=== PATIENT | female | born 1995 | race Caucasian/White ===

== ENCOUNTER 2023-01-15 15:03 | Emergency (ER) | payer OTHER ==
[~2023-01-15] VITALS: Ht 165.1 cm; Wt 81.1 kg
[2023-01-15] MEDS ORDERED: ADENOSINE 6MG 2ML INJECTION IV STA ×3 (15:12)
[2023-01-15] MEDS ORDERED: ADENOSINE 6MG 2ML INJECTION As Ordered ONE (15:13)
[2023-01-15] MEDS ORDERED: PROZ10CA7 PO (15:55)
[2023-01-15] MEDS ORDERED: HYDR-3363 PO (15:55)
[2023-01-15 16:00] LABS: HEMATOCRIT 44.4 % (36.0-47.0); HEMOGLOBIN 15.1 g/dl (12.0-15.5); MEAN CORPUSCULAR HEMOGLOBIN 29.2 pg (27.0-33.0); MEAN CORPUSCULAR VOLUME 85.7 fl (80.0-96.0); PLATELET COUNT, AUTOMATED 347 10^3/uL (150-450); RED BLOOD COUNT 5.18 10^6/uL (4.00-5.40); WHITE BLOOD COUNT 14.4 10^3/uL (4.0-10.0)
[2023-01-15 16:26] LABS: BLOOD UREA NITROGEN 8 MG/DL (9-23); CALCIUM LEVEL 9.7 MG/DL (8.5-10.1); CARBON DIOXIDE LEVEL 20 MMOL/L (20-31); CHLORIDE LEVEL 107 MMOL/L (98-107); CREATININE FOR GFR 0.66 MG/DL (0.55-1.30); GLOMERULAR FILTRATION RATE > 60.0 (>60); GLUCOSE, FASTING 118 MG/DL (60-100); POTASSIUM SERUM 3.8 MMOL/L (3.5-5.1); SODIUM LEVEL 139 MMOL/L (136-145)
[2023-01-15 16:29] LABS: THYROID STIMULATING HORMONE 1.965 uIU/ML (0.55-4.78)
[2023-01-15 17:45] VITALS: BP 103/57; TEMP 97; O2SAT 99
== END 2023-01-15 17:58 | disposition home or self-care (01) ==
LOC: M ED 15:03
DX: I47.1 Supraventricular tachycardia (principal); F41.9 Anxiety disorder, unspecified; Z88.2 Allergy status to sulfonamides; Z79.899 Other long term (current) drug therapy
CPT/HCPCS: 80047; 80048; 83735; 84443; 84702; 85027; 93005; 96374; 99284; J0153